=== PATIENT | female | born 1955 | race Caucasian/White ===

== ENCOUNTER 2017-03-14 12:54 | Emergency (ER) | payer OTHER ==
[~2017-03-14] VITALS: Ht 154.9 cm; Wt 59.0 kg
[2017-03-14 13:38] VITALS: BP 121/64
[2017-03-14] MEDS ORDERED: ZITHROMAX Z-PA250 MG PO (15:38)
== END 2017-03-14 16:01 | disposition home or self-care (01) ==
LOC: EME 12:54
DX: J20.9 Acute bronchitis, unspecified (principal); J02.9 Acute pharyngitis, unspecified; Z87.01 Personal history of pneumonia (recurrent)
CPT/HCPCS: 71046